=== PATIENT | female | born 1995 ===

== ENCOUNTER 2021-09-24 22:32 | Emergency (ER) | payer SELFPAY ==
--- NOTE | 2021-09-25 00:24 | ER ---
Nurse's Notes [facility] Name: Yumi Jones Age: 26 yrs Sex: Female : 1995 Arrival Date: 09/24/2021 Time: 22:39 Bed Waiting Private MD: Diagnosis: Presentation: 09/24 23:14 Chief complaint: Patient states: CHEST PAIN STARED LAST NIGHT. STOMACH ACH STARTED kd3 HURTING AROUND NOON TODAY. ABOUT A YEAR AGO, I HAD SIMILAR PAIN WHEN I WAS BUT IT WENT AWAY ON ITS OWN. Coronavirus screen: Vaccine status: Patient reports receiving the 2nd dose of the covid vaccine. Ebola Screen: No symptoms or risks identified at this time. Initial Sepsis Screen: Does the patient meet any 2 criteria? No. Patient's initial sepsis screen is negative. Does the patient have a suspected source of infection? No. Patient's initial sepsis screen is negative. Risk Assessment: Do you want to hurt yourself or someone else? Patient reports no desire to harm self or others. Onset of symptoms was September 23, 2021. 23:14 Method Of Arrival: Ambulatory kd3 23:14 Acuity: YESENIA 4 kd3 Triage Assessment: 23:18 General: Appears in no apparent distress. Behavior is calm, cooperative, appropriate kd3 for age. Pain: Complains of pain in chest and abdomen. Cardiovascular: Patient's skin is warm and dry. Respiratory: No deficits noted. Airway is patent Respiratory effort is even, unlabored. RAYON TESTER: 23:18 LMP 08/23/2021 kd3 Historical: - Allergies: 23:17 No Known Allergies; kd3 - Home Meds: 23:17 None [Active]; kd3 - PMHx: 23:17 None; kd3 - PSHx: 23:17 None; kd3 23:18 COSMETIC TUMMUY TUCK; kd3 - Immunization history:: Adult Immunizations not up to date. - Social history:: Smoking status: Patient denies any tobacco usage or history of. Screenin:20 Abuse screen: Denies threats or abuse. Denies injuries from another. Nutritional kd3 screening: No deficits noted. Tuberculosis screening: No symptoms or risk factors identified. Fall Risk None identified. Assessment: 09/25 00:00 Reassessment: Notified of patient leaving at 2334 by Registration staff, reason unknown.lp1 Vital Signs: 09/24 23:14 BP 136 / 94; Pulse 85; Resp 16; Temp 97.7; Pulse Ox 98% on R/A; Weight 99.79 kg; Height kd3 5 ft. 5 in. (165.10 cm); Pain 7/10; 23:14 Body Mass Index 36.61 (99.79 kg, 165.10 cm) kd3 ED Course: 22:39 Patient arrived in ED. 23:17 Triage completed. kd3 23:18 Arm band placed on right wrist. kd3 23:34 Patient's name was called from ER lobby. Unable to locate patient. Will disposition as lp1 left without being seen by a provider. Administered Medications: No medications were administered Outcome: 09/25 00:24 Patient left the ED. lp1 Signatures: Pastora Jain, RN RN lp1 Flora Rachel Roxy Daniels RN RN kd3 Corrections: (The following items were deleted from the chart) 00:21 09/24 23:34 Patient's name was called from ER lobby. Unable to locate patient. Will lp1 disposition as left without being seen by a provider. lp1 09/25 00:21 00:00 Reassessment: Notified of patient leaving by Registration staff, reason unknown lp1 lp1
[2021-09-25 00:32] VITALS: BP 136/94; TEMP 97.7; O2SAT 98
== END 2021-09-25 00:24 | disposition left against medical advice (07) ==
LOC: ER 22:32
DX: Z53.21 Procedure and treatment not carried out due to patient leaving prior to being seen by health care provider (principal)
CPT/HCPCS: 99281

== ENCOUNTER 2022-04-28 22:49 | Emergency (ER) | payer SELFPAY ==
[2022-04-28] MEDS ORDERED: ONDANSETRON 4 MG/2 ML VIAL ONE (23:59)
[2022-04-29] MEDS ORDERED: NA CHLORIDE 0.9% 1,000 ML ONE
[2022-04-29] MEDS ORDERED: FAMOTIDINE 20 MG/2 ML VIAL IV ONE
[2022-04-29 00:01] LABS: Absolute Lymphocytes (CBC) 3.1 K/uL (0.7-4.9); Hematocrit 43.3 % (36.0-45.0); Lymphocytes % 26.3 % (15.3-44.8); MCV 87.1 fL (80-100); MPV 7.1 fL (7.6-11.3); RBC Red Blood Cell Count 4.97 M/uL (3.86-4.86)
[2022-04-29 00:12] LABS: Bilirubin Total 0.4 mg/dL (0.2-1.0); Potassium 3.4 mmol/L (3.5-5.1); Protein, Total 8.2 g/dL (6.4-8.2)
[2022-04-29] MEDS ORDERED: MORPHINE 4 MG/ML SYR ONE (01:08)
[2022-04-29 01:13] LABS: Urine Blood Negative (Negative); Urine Glucose Negative (Negative); Urine Protein Negative (Negative); Urine pH 6.5 (5.0-7.0)
--- NOTE | 2022-04-29 02:53 | EDPHYS ---
Physician Documentation [facility] Name: Yumi Jones Age: 26 yrs Sex: Female : 1995 Arrival Date: 04/28/2022 Time: 22:52 Bed 9 Private MD: ED Physician Lico Farris HPI: 04/28 23:26 This 26 yrs old Female presents to ER via Ambulatory with complaints of Epigastric Pain.kdr 23:28 Patient complains of abdominal pain, upper, that radiates to her anterior chest in the kdr subclavicular area as well as her back. She has had similar episodes previously but not as severe or as all-encompassing as today. Patient does not appear to be acutely ill or toxic. Her vital signs are overall stable though her blood pressures little bit elevated. Otherwise she is slightly diaphoretic on exam but no other focal findings.. Onset: The symptoms/episode began/occurred gradually, just prior to arrival, today. Severity of symptoms: At their worst the symptoms were mild moderate just prior to arrival, in the emergency department the symptoms are unchanged. The patient has experienced similar episodes in the past, a few times. The patient has not recently seen a physician. Historical: - Allergies: 22:59 No Known Allergies; hb - Home Meds: 22:59 None [Active]; hb - PMHx: 22:59 None; hb - PSHx: 22:59 COSMETIC TUMMUY TUCK; liposuction; hb - Immunization history:: Adult Immunizations up to date. - Social history:: Smoking status: Patient denies any tobacco usage or history of. ROS: 23:28 Constitutional: Negative for fever, chills, and weight loss, Eyes: Negative for injury, kdr pain, redness, and discharge, ENT: Negative for injury, pain, and discharge, Neck: Negative for injury, pain, and swelling, Cardiovascular: Negative for chest pain, palpitations, and edema, Respiratory: Negative for shortness of breath, cough, wheezing, and pleuritic chest pain, Back: Negative for injury and pain, : Negative for injury, bleeding, discharge, and swelling, MS/Extremity: Negative for injury and deformity, Neuro: Negative for headache, weakness, numbness, tingling, and seizure activity. 23:28 Abdomen/GI: Positive for abdominal pain, nausea, Negative for abdominal distension, anorexia, dysphagia, hematemesis, black/tarry stool, rectal pain, rectal bleeding. Exam: 23:28 Constitutional: This is a well developed, well nourished patient who is awake, alert, kdr and in no acute distress. Head/Face: Normocephalic, atraumatic. Eyes: Pupils equal round and reactive to light, extra-ocular motions intact. Lids and lashes normal. Conjunctiva and sclera are non-icteric and not injected. Cornea within normal limits. Periorbital areas with no swelling, redness, or edema. Neck: Trachea midline, no thyromegaly or masses palpated, and no cervical lymphadenopathy. Supple, full range of motion without nuchal rigidity, or vertebral point tenderness. No Meningismus. Chest/axilla: Normal chest wall appearance and motion. Nontender with no deformity. No lesions are appreciated. Cardiovascular: Regular rate and rhythm with a normal S1 and S2. No gallops, murmurs, or rubs. Normal PMI, no JVD. No pulse deficits. Respiratory: Lungs have equal breath sounds bilaterally, clear to auscultation and percussion. No rales, rhonchi or wheezes noted. No increased work of breathing, no retractions or nasal flaring. Abdomen/GI: Soft, non-tender, with normal bowel sounds. No distension or tympany. No guarding or rebound. No evidence of tenderness throughout. Back: No spinal tenderness. No costovertebral tenderness. Full range of motion. Skin: Warm, dry with normal turgor. Normal color with no rashes, no lesions, and no evidence of cellulitis. MS/ Extremity: Pulses equal, no cyanosis. Neurovascular intact. Full, normal range of motion. Neuro: Awake and alert, GCS 15, oriented to person, place, time, and situation. Cranial nerves II-XII grossly intact. Motor strength 5/5 in all extremities. Sensory grossly intact. Cerebellar exam normal. Normal gait. Psych: Awake, alert, with orientation to person, place and time. Behavior, mood, and affect are within normal limits. 23:28 Skin: Turgor: is excellent, Patient was mildly diaphoretic at the time of initial exam. 04/29 02:59 ECG was reviewed by the Attending Physician. kdr Vital Signs: 04/28 22:58 BP 142 / 106; Pulse 88; Resp 16; Temp 98.3(O); Pulse Ox 100% on R/A; Weight 90.72 kg; hb Height 5 ft. 5 in. (165.10 cm); Pain 8/10; 04/29 01:04 BP 128 / 89; Pulse 85; Resp 18; Pulse Ox 100% on R/A; Pain 7/10; tw5 02:19 Pulse 75; Resp 18; Pulse Ox 100% on R/A; tw5 04/28 22:58 Body Mass Index 33.28 (90.72 kg, 165.10 cm) hb MDM: 02:52 Patient medically screened. kdr 03:00 Data reviewed: vital signs, nurses notes, old medical records, lab test result(s), kdr radiologic studies. Counseling: I had a detailed discussion with the patient and/or guardian regarding: the historical points, exam findings, and any diagnostic results supporting the discharge/admit diagnosis, lab results, radiology results. 04/28 23:26 Order name: CBC with Diff; Complete Time: 00:43 kdr 04/28 23:26 Order name: CMP; Complete Time: 00:43 kdr 04/28 23:26 Order name: Lipase; Complete Time: 00:43 kdr 04/29 01:13 Order name: Urine Dipstick-Ancillary; Complete Time: 02:46 EDMS 04/29 01:19 Order name: Urine --Ancillary (enter results); Complete Time: 02:46 ds4 04/29 02:04 Order name: Troponin High Sensitivity; Complete Time: 02:46 kdr 04/28 23:26 Order name: Abdomen Limited US kdr 04/28 23:26 Order name: CT Abd/Pelvis - IV Contrast Only kdr 04/28 23:33 Order name: EKG; Complete Time: 23:34 tw5 04/28 23:26 Order name: IV Saline Lock; Complete Time: 23:48 kdr 04/28 23:26 Order name: Labs collected and sent; Complete Time: 23:48 kdr EC:59 Rate is 80 beats/min. Rhythm is regular, Sinus Rhythm with No ectopy. QRS [place] is kdr Normal. HI interval is normal. QRS interval is normal. QT interval is normal. Clinical impression: Normal ECG. Administered Medications: 04/28 23:58 Drug: NS 0.9% 1000 ml Route: IV; Rate: 1 bolus; Site: left antecubital; 04/29 01:05 Follow up: Response: No adverse reaction; IV Status: Completed infusion; IV Intake: tw5 1000ml 01:05 Follow up: IV Status: Completed infusion 04/28 23:59 Drug: Pepcid (famotidine) 20 mg Route: IVP; Site: left antecubital; 04/29 01:05 Follow up: Response: No adverse reaction 04/28 23:59 Drug: Zofran (Ondansetron) 4 mg Route: IVP; Site: left antecubital; 04/29 01:05 Follow up: Response: No adverse reaction 01:04 Drug: morphine 4 mg Route: IVP; Infused Over: 4 mins; Site: left antecubital; 02:00 Follow up: Response: No adverse reaction; Pain is decreased; RASS: Alert and Calm (0) 03:05 Drug: Ketorolac 15 mg Route: IVP; Site: left antecubital; 03:05 Follow up: Response: No adverse reaction; Medication administered at discharge. Disposition Summary: 04/29/22 02:52 Discharge Ordered Location: Home kdr Condition: Stable kdr Diagnosis - Abdominal pain, Generalized kdr Followup: kdr - With: Private Physician - When: 2 - 3 days - Reason: If symptoms return, Further diagnostic work-up, Recheck today's complaints, Continuance of care, Re-evaluation by your physician Discharge Instructions: - Discharge Summary Sheet kdr - Abdominal Pain, Adult, [id number] kdr - Gallbladder Eating Plan kdr Forms: - Medication Reconciliation Form kdr - Thank You Letter kdr - Antibiotic Education kdr - Prescription Opioid Use kdr Prescriptions: - Zofran 4 mg Oral Tablet - take 1 tablet by ORAL route every 4-6 hours As needed; 10 tablet; Refills: 0, kdr Product Selection Permitted - Tramadol 50 mg Oral Tablet - take 1 tablet by ORAL route every 8 hours as needed; 12 tablet; Refills: 0, kdr Product Selection Permitted - Bactrim DS 800-160 mg Oral Tablet - take 1 tablet by ORAL route every 12 hours for 5 days; 10 tablet; Refills: 0, kdr Product Selection Permitted Signatures: Dispatcher [facility] Rittger, LicoMD MD cachorro Heather, RN RN Nevin Killian tw5
--- NOTE | 2022-04-29 02:53 | ER ---
Nurse's Notes [facility] Name: Yumi Jones Age: 26 yrs Sex: Female : 1995 Arrival Date: 04/28/2022 Time: 22:52 Bed 9 Private MD: Diagnosis: Abdominal pain, Generalized Presentation: 04/28 22:58 Chief complaint: Epigastric pain that radiates to chest and upper back. hb 22:58 Coronavirus screen: At this time, the client does not indicate any symptoms associated hb with coronavirus-19. Ebola Screen: No symptoms or risks identified at this time. Initial Sepsis Screen: Does the patient meet any 2 criteria? No. Patient's initial sepsis screen is negative. Does the patient have a suspected source of infection? No. Patient's initial sepsis screen is negative. Risk Assessment: Do you want to hurt yourself or someone else? Patient reports no desire to harm self or others. Onset of symptoms was April 28, 2022. 22:58 Method Of Arrival: Ambulatory hb 22:58 Acuity: YESENIA 3 hb Historical: - Allergies: 22:59 No Known Allergies; hb - Home Meds: 22:59 None [Active]; hb - PMHx: 22:59 None; hb - PSHx: 22:59 COSMETIC TUMMUY TUCK; liposuction; hb - Immunization history:: Adult Immunizations up to date. - Social history:: Smoking status: Patient denies any tobacco usage or history of. Screenin:35 Abuse screen: Denies threats or abuse. Denies injuries from another. Nutritional kb3 screening: No deficits noted. Tuberculosis screening: No symptoms or risk factors identified. Fall Risk None identified. Assessment: 23:35 Also complains of nausea. Reassessment: No changes from previously documented kb3 assessment. General: Appears distressed, uncomfortable, Behavior is calm, cooperative. Pain: Complains of pain in epigastric area Pain radiates to mid-sternal area Pain currently is 10 out of 10 on a pain scale. Quality of pain is described as burning, pressure, Pain began 3 hours ago. Is continuous. Cardiovascular: Reports chest pain, nausea, Rhythm is regular. GI: Abd is soft Abdomen is tender to palpation in epigastric area Reports epigastric pain, gaseousness, nausea. 04/29 01:04 General: Behavior is calm, cooperative, appropriate for age. Pain: Pain currently is 7 tw5 out of 10 on a pain scale. 02:19 Reassessment: Patient is alert, oriented x 3, equal unlabored respirations, skin tw5 warm/dry/pink. Patient states feeling better. Patient states symptoms have improved. Pain: Pain currently is 2 out of 10 on a pain scale. 03:05 Reassessment: Patient appears in no apparent distress at this time. Patient states tw5 feeling better. Patient states symptoms have improved. Vital Signs: 04/28 22:58 BP 142 / 106; Pulse 88; Resp 16; Temp 98.3(O); Pulse Ox 100% on R/A; Weight 90.72 kg; hb Height 5 ft. 5 in. (165.10 cm); Pain 8/10; 04/29 01:04 BP 128 / 89; Pulse 85; Resp 18; Pulse Ox 100% on R/A; Pain 7/10; tw5 02:19 Pulse 75; Resp 18; Pulse Ox 100% on R/A; tw5 04/28 22:58 Body Mass Index 33.28 (90.72 kg, 165.10 cm) hb ED Course: 04/28 22:52 Patient arrived in ED. bp1 22:54 Lico Farris MD is Attending Physician. kdr 22:59 Triage completed. hb 22:59 Arm band placed on. hb 23:03 Christy Leavitt, RN is Primary Nurse. kb3 23:35 Patient has correct armband on for positive identification. Client placed on continuous kb3 cardiac and pulse oximetry monitoring. NIBP monitoring applied. 23:35 EKG done, by ED staff, reviewed by Lico Farris MD. tw5 23:35 No provider procedures requiring assistance completed. Patient maintains SpO2 kb3 saturation greater than 95% on room air. 23:48 Initial lab(s) drawn, by me, sent to lab. Inserted saline lock: 20 gauge in left tw5 antecubital area, using aseptic technique. Blood collected. 23:48 CBC with Diff Sent. tw5 23:48 CMP Sent. tw5 23:48 Lipase Sent. tw5 23:59 CBC with Diff Sent. tw5 23:59 CMP Sent. tw5 23:59 Lipase Sent. tw5 04/29 00:00 Abdomen Limited US In Process Unspecified. EDMS 01:22 CT Abd/Pelvis - IV Contrast Only In Process Unspecified. EDMS 02:12 Troponin High Sensitivity Sent. tw5 03:05 IV discontinued, intact, bleeding controlled, No redness/swelling at site. Pressure tw5 dressing applied. Administered Medications: 04/28 23:58 Drug: NS 0.9% 1000 ml Route: IV; Rate: 1 bolus; Site: left antecubital; tw5 04/29 01:05 Follow up: Response: No adverse reaction; IV Status: Completed infusion; IV Intake: tw5 1000ml 01:05 Follow up: IV Status: Completed infusion tw5 04/28 23:59 Drug: Pepcid (famotidine) 20 mg Route: IVP; Site: left antecubital; tw5 04/29 01:05 Follow up: Response: No adverse reaction tw5 04/28 23:59 Drug: Zofran (Ondansetron) 4 mg Route: IVP; Site: left antecubital; tw5 04/29 01:05 Follow up: Response: No adverse reaction tw5 01:04 Drug: morphine 4 mg Route: IVP; Infused Over: 4 mins; Site: left antecubital; tw5 02:00 Follow up: Response: No adverse reaction; Pain is decreased; RASS: Alert and Calm (0) tw5 03:05 Drug: Ketorolac 15 mg Route: IVP; Site: left antecubital; tw5 03:05 Follow up: Response: No adverse reaction; Medication administered at discharge. tw5 Medication: 04/28 23:35 VIS not applicable for this client. kb3 Intake: 04/29 01:05 IV: 1000ml; Total: 1000ml. tw5 Outcome: 02:52 Discharge ordered by . kdr 03:05 Discharged to home ambulatory. tw5 03:05 Condition: good 03:05 Discharge instructions given to patient, Instructed on discharge instructions, follow up and referral plans. no drinking with medication, no driving heavy equipment, medication usage, Demonstrated understanding of instructions, follow-up care, medications, Prescriptions given X 3. 03:06 Patient left the ED. tw5 Signatures: Dispatcher [employer] EDMS Lico Farris MD MD kdr Rachael Flores RN RN hb [place], Brittany bp1 Wood, Tiffany tw5 Tree, Christy, RN RN kb3
[2022-04-29] MEDS ORDERED: KETOROLAC 30 MG/ML INJ ONE (03:08)
[2022-04-29 08:10] VITALS: TEMP 98.3; O2SAT 100
[2022-04-29 08:13] VITALS: BP 128/89
--- NOTE | 2022-04-30 08:10 | EKG ---
Test Date: 2022-04-28 Test Time: 23:34:11 Diver'S Tender: MEASUREMENT RESULTS: Intervals: Rate: 80 OK: 184 QRSD: 78 QT: 380 QTc: 438 Gilbert: P: 44 OK: 184 QRS: 34 T: 43 INTERPRETIVE STATEMENTS: Normal sinus rhythm Normal ECG No previous ECG available for comparison Electronically Signed On 04-30-22 08:06:37 CDT by Ck Galo
--- NOTE | 2022-04-30 12:09 | RAD REPORT ---
EXAM DESCRIPTION: US - Abdomen Exam Limited - 04/30/2022 5:26 am CLINICAL HISTORY: ABD PAIN. COMPARISON: None. TECHNIQUE: Ultrasound of the gallbladder with Doppler flow imaging was obtained. FINDINGS: The main portal vein is patent with normal hepatopedal flow. Gallbladder: There are few small calcified gallstones layering dependently in the gallbladder, measur ing up to 1.8 cm. No gallbladder wall thickening. Bile ducts: No dilatation of the intrahepatic bile ducts. The common bile duct measures 0.3 cm in chaz meter at the richard hepatis. IMPRESSION: Cholelithiasis. No gallbladder wall thickening or biliary ductal dilatation. Electronically signed by: Kalee Santillan MD 04/29/2022 12:16 AM CDT Due to temporary technical issues with the PACS/Fluency reporting system, reports are being signed by the in house radiologists without review as a courtesy to insure prompt reporting. The interpreting radiologist is fully responsible for the content of the report.
--- NOTE | 2022-04-30 12:37 | RAD REPORT ---
EXAM DESCRIPTION: CT - Abdomen Pelvis W Contrast - 04/29/2022 3:31 am CLINICAL HISTORY: 26 years Female Abdominal pain, acute, nonlocalized TECHNIQUE: Axial CT imaging of the abdomen and pelvis was performed following the administration of intravenous contrast.. Oral contrast was not administered. Sagittal and coronal reconstructed image s were then performed. The CT study is performed according to ALARA (as low as reasonably achievabl e) or ALARA/IMAGE GENTLY, with automatic adjustment of mA and/or kV according to patient size. Performed on: 04/29/2022 at 1:20 AM. COMPARISON: Abdominal ultrasound performed on 04/28/2022 11:50 PM FINDINGS: Lung bases: The lung bases are clear. Liver: The liver measures approximately 20 cm in craniocaudal dimension. No focal hepatic abnormaliti es are identified. Liver attenuation is within normal limits. The hepatic and portal veins are patent . Spleen: The spleen is normal is size, configuration and attenuation. Gallbladder and bile duct: The gallbladder is well distended and contains gallstones. There is no b iliary ductal dilatation. Pancreas: The pancreas is grossly normal in size and configuration. Adrenal Glands: The adrenal glands are normal in size and configuration. Kidneys: The kidneys are normal in size and configuration. There is no evidence of hydronephrosis. Th ere is no evidence of nephrolithiasis. No definite solid or cystic renal mass lesions are identified. Stomach: The stomach is grossly normal. There is no definite hiatal hernia. Bowel: The bowel gas pattern is non specific and non obstructive. Appendix: The appendix is normal. Free air: There is no evidence of free air. Free fluid: There is no evidence of free fluid. Vasculature: The aorta is normal in caliber and contour. The inferior vena cava is grossly unremarkab le. Lymphadenopathy: No pathologic lymphadenopathy is identified. Bladder: The bladder is well distended and smooth in contour. Reproductive: The uterus is grossly within normal limits. Bones: No acute osseous abnormalities are identified. Soft tissues: No acute soft tissue abnormalities are identified. IMPRESSION: 1. No evidence of acute intra-abdominal or intrapelvic pathology. 2. Cholelithiasis without evidence of biliary ductal dilatation. 3. Hepatomegaly. Electronically signed by: Amina Tucker DO 04/29/2022 2:11 AM CDT Due to temporary technical issues with the PACS/Fluency reporting system, reports are being signed by the in house radiologists without review as a courtesy to insure prompt reporting. The interpreting radiologist is fully responsible for the content of the report.
== END 2022-04-29 03:06 | disposition home or self-care (01) ==
LOC: ER 22:49
DX: R10.84 Generalized abdominal pain (principal)
CPT/HCPCS: 36415; 74177; 76705; 80053; 81003; 81025; 83690; 84484; 85025; 93005; 96361; 96374; 96375; 99284; J2405; Q9967

== ENCOUNTER 2022-05-13 10:32 | Inpatient (IN) | payer SELFPAY ==
[2022-05-13 10:54] LABS: Urine Blood Trace-intact (Negative); Urine Glucose Negative (Negative); Urine Protein Trace (Negative); Urine Specific Gravity >=1.030 (1.005-1.030)
[2022-05-13 11:11] LABS: Absolute Lymphocytes (CBC) 1.8 K/uL (0.7-4.9); Lymphocytes % 17.2 % (15.3-44.8); MCV 88.3 fL (80-100); MPV 7.2 fL (7.6-11.3); RBC Red Blood Cell Count 4.99 M/uL (3.86-4.86)
[2022-05-13] MEDS ORDERED: ONDANSETRON 4 MG/2 ML VIAL ONE ×2 (11:15→20:07)
[2022-05-13] MEDS ORDERED: MORPHINE 4 MG/ML SYR ONE (11:15)
[2022-05-13] MEDS ORDERED: FAMOTIDINE 20 MG/2 ML VIAL IV ONE (11:15)
[2022-05-13 11:26] LABS: Bilirubin Total 0.6 mg/dL (0.2-1.0); Potassium 3.5 mmol/L (3.5-5.1); Protein, Total 8.1 g/dL (6.4-8.2)
[2022-05-13] MEDS ORDERED: MEPERIDINE HCL 25 MG/ML SYR ONE (12:43)
--- NOTE | 2022-05-13 13:05 | RAD REPORT ---
EXAM DESCRIPTION: US - Abdomen Exam Limited - 05/13/2022 12:27 pm CLINICAL HISTORY: Abdominal pain. COMPARISON: April 2022 FINDINGS: The gallbladder wall is not thickened. Multiple gallstones. Some are present within the g allbladder neck Gallbladder distention The biliary tree is normal caliber. IMPRESSION: Cholelithiasis without evidence of cholecystitis Gallbladder distention
--- NOTE | 2022-05-13 13:48 | EDPHYS ---
Physician Documentation [facility] Name: Yumi Jones Age: 26 yrs Sex: Female : 1995 Arrival Date: 05/13/2022 Time: 10:34 Bed 17 Private MD: ED Physician Lico Farris HPI: 05/13 15:08 This 26 yrs old Female presents to ER via Ambulatory with complaints of Abdominal Pain. kdr 15:08 The patient presents with abdominal pain in the epigastric area, in the right upper kdr quadrant. Onset: The symptoms/episode began/occurred just prior to arrival, this morning. The symptoms do not radiate. Associated signs and symptoms: none. The symptoms are described as achy, crampy, sharp, vague, waxing/waning. Modifying factors: The symptoms are alleviated by nothing, the symptoms are aggravated by movement, touching the area, vomiting. Severity of pain: At its worst the pain was a 7 / 10 in the emergency department the pain is unchanged. The patient has experienced similar episodes in the past, several times, but today's symptoms are worse. The patient has not recently seen a physician. 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 ROS: 15:08 Constitutional: Negative for fever, chills, and weight loss, Eyes: Negative for injury, kdr pain, redness, and discharge, Neck: Negative for injury, pain, and swelling, Cardiovascular: Negative for chest pain, palpitations, and edema, Respiratory: Negative for shortness of breath, cough, wheezing, and pleuritic chest pain, Back: Negative for injury and pain, : Negative for injury, bleeding, discharge, and swelling, MS/Extremity: Negative for injury and deformity, Skin: Negative for injury, rash, and discoloration, Neuro: Negative for headache, weakness, numbness, tingling, and seizure activity. Psych: Negative for depression, anxiety, suicide ideation, homicidal ideation, and hallucinations, Allergy/Immunology: Negative for hives, rash, and allergies, Endocrine: Negative for neck swelling, polydipsia, polyuria, polyphagia, and marked weight changes, Hematologic/Lymphatic: Negative for swollen nodes, abnormal bleeding, and unusual bruising. 15:08 Abdomen/GI: Positive for abdominal pain, nausea, Negative for diarrhea, constipation, abdominal cramps, abdominal distension, black/tarry stool, rectal pain, rectal bleeding, bowel incontinence. Exam: 15:08 Constitutional: This is a well developed, well nourished patient who is awake, alert, kdr and in no acute distress. Head/Face: Normocephalic, atraumatic. Eyes: Pupils equal round and reactive to light, extra-ocular motions intact. Lids and lashes normal. Conjunctiva and sclera are non-icteric and not injected. Cornea within normal limits. Periorbital areas with no swelling, redness, or edema. Neck: Trachea midline, no thyromegaly or masses palpated, and no cervical lymphadenopathy. Supple, full range of motion without nuchal rigidity, or vertebral point tenderness. No Meningismus. Chest/axilla: Normal chest wall appearance and motion. Nontender with no deformity. No lesions are appreciated. Cardiovascular: Regular rate and rhythm with a normal S1 and S2. No gallops, murmurs, or rubs. Normal PMI, no JVD. No pulse deficits. Respiratory: Lungs have equal breath sounds bilaterally, clear to auscultation and percussion. No rales, rhonchi or wheezes noted. No increased work of breathing, no retractions or nasal flaring. Back: No spinal tenderness. No costovertebral tenderness. Full range of motion. Skin: Warm, dry with normal turgor. Normal color with no rashes, no lesions, and no evidence of cellulitis. MS/ Extremity: Pulses equal, no cyanosis. Neurovascular intact. Full, normal range of motion. Neuro: Awake and alert, GCS 15, oriented to person, place, time, and situation. Cranial nerves II-XII grossly intact. Motor strength 5/5 in all extremities. Sensory grossly intact. Cerebellar exam normal. Normal gait. Psych: Awake, alert, with orientation to person, place and time. Behavior, mood, and affect are within normal limits. 15:08 Abdomen/GI: Inspection: obese Bowel sounds: diminished, in all quadrants, Palpation: Indicators: McBurney's point is not tender, Luevano's sign is negative, Rovsing's sign is negative. Vital Signs: 10:42 BP 119 / 81; Pulse 87; Resp 16; Temp 97.0; Pulse Ox 100% on R/A; Weight 90.72 kg; iw Height 5 ft. 5 in. (165.10 cm); Pain 9/10; 10:55 BP 110 / 82; Pulse 92; Resp 16; Pulse Ox 99% ; Pain 10/10; mb8 11:37 BP 127 / 89; Pulse 80; Resp 16; Pulse Ox 99% ; Pain 7/10; mb8 12:38 BP 119 / 74; Pulse 84; Resp 14; Pulse Ox 97% ; Pain 7/10; mb8 12:56 BP 129 / 94; Pulse 89; Resp 16; Pain 5/10; mb8 12:57 BP 129 / 94; Pulse 70; Resp 16; Pulse Ox 99% ; Pain 5/10; mb8 14:13 BP 127 / 82; Pulse 69; Resp 20; Temp 98.1; Pulse Ox 100% ; Pain 7/10; mb8 14:56 BP 124 / 91; Pulse 71; Resp 15; Pulse Ox 99% ; Pain 4/10; mb8 16:00 BP 120 / 88; Pulse 85; Resp 14; Pulse Ox 80% ; Pain 7/10; mb8 16:25 BP 124 / 89; Pulse 80; Resp 18; Pulse Ox 98% ; Pain 7/10; mb8 17:27 BP 118 / 81; Pulse 89; Resp 20; Pulse Ox 97% ; Pain 9/10; mb8 10:42 Body Mass Index 33.28 (90.72 kg, 165.10 cm) iw MDM: 10:51 Patient medically screened. snw 15:08 Data reviewed: vital signs, nurses notes, lab test result(s), radiologic studies. kdr Counseling: I had a detailed discussion with the patient and/or guardian regarding: the historical points, exam findings, and any diagnostic results supporting the discharge/admit diagnosis, lab results, radiology results, the need for further work-up and treatment in the hospital. 15:12 Physician consultation: Tejas Felipe MD and will see patient in ED, immediately. kdr 05/13 10:54 Order name: Urine Dipstick-Ancillary; Complete Time: 11:59 EDMS 05/13 10:59 Order name: CBC with Diff; Complete Time: 11:59 kdr 05/13 10:59 Order name: CMP; Complete Time: 11:59 kdr 05/13 10:59 Order name: Lipase; Complete Time: 11:59 kdr 05/13 15:09 Order name: SARS RAPID eb 05/13 16:44 Order name: Urine --Ancillary (enter results) eb 05/13 16:46 Order name: Basic Metabolic Panel EDMS 05/13 16:46 Order name: Basic Metabolic Panel EDMS 05/13 16:46 Order name: CBC with Automated Diff EDMS 05/13 16:46 Order name: CBC with Automated Diff EDMS 05/13 16:46 Order name: Lipase EDMS 05/13 16:46 Order name: Lipase EDMS 05/13 16:46 Order name: Liver (Hepatic) Function EDMS 05/13 10:47 Order name: Urine Dipstick-Ancillary (obtain specimen); Complete Time: 10:53 mb8 05/13 10:47 Order name: Urine Test (obtain specimen); Complete Time: 10:53 mb8 05/13 10:59 Order name: Abdomen Limited US; Complete Time: 13:19 kdr 05/13 10:59 Order name: IV Saline Lock; Complete Time: 11:02 kdr 05/13 10:59 Order name: Labs collected and sent; Complete Time: 11:02 kdr 05/13 16:46 Order name: NPO EDMS 05/13 16:46 Order name: Liver (Hepatic) Function EDMS Administered Medications: 11:12 Drug: morphine 4 mg Route: IVP; Infused Over: 4 mins; Site: right antecubital; mb8 11:37 Follow up: Response: No adverse reaction; Pain is decreased mb8 11:12 Drug: Pepcid (famotidine) 20 mg Route: IVP; Site: right antecubital; mb8 11:37 Follow up: Response: No adverse reaction mb8 11:12 Drug: Zofran (Ondansetron) 4 mg Route: IVP; Site: right antecubital; mb8 11:36 Follow up: Response: No adverse reaction; Nausea is decreased mb8 12:38 Drug: Demerol (meperidine) 25 mg Route: IVP; Site: right antecubital; mb8 12:56 Follow up: BP 129 / 94; Pulse 89 bpm; Resp 16 bpm; Pain 5/10 Adult; Response: No mb8 adverse reaction; Pain is decreased 14:23 Drug: Dilaudid (HYDROmorphone) 1 mg Route: IVP; Infused Over: 30 mins; Site: right mb8 antecubital; 14:57 Follow up: Response: No adverse reaction; Pain is decreased mb8 15:59 Drug: Zosyn (piperacillin-tazobactam) 3.375 grams Route: IVPB; Infused Over: 60 mins; mb8 Site: right antecubital; 17:00 Follow up: Response: No adverse reaction; IV Status: Completed infusion mb8 Disposition Summary: 05/13/22 13:48 Hospitalization Ordered Hospitalization Status: Observation kdr Provider: Tejas Felipe Location: Telemetry/MedSurg (observation) kdr Condition: Fair kdr Problem: an acute exacerbation kdr Symptoms: have improved kdr Bed/Room Type: Standard kdr Room Assignment: kdr Diagnosis - Abdominal tenderness kdr - Gall stones, RUQ pain kdr Forms: - Medication Reconciliation Form kdr - SBAR form kdr Signatures: Dispatcher [employer] EDMS Lico Farris MD MD kdr Shireen Rodgers FNP-C FNP-Marjorie Berry RN RN iw Greg Lala RN RN mb8
--- NOTE | 2022-05-13 13:48 | ER ---
Nurse's Notes [facility] Name: Yumi Jones Age: 26 yrs Sex: Female : 1995 Arrival Date: 05/13/2022 Time: 10:34 Bed 17 Private MD: Diagnosis: Abdominal tenderness;Gall stones, RUQ pain Presentation: 05/13 10:42 Chief complaint: Patient states: upper abd pain X 12 hours, she was recently diagnosed iw with "bladder stones" and has been taking her tramadol but it's not helping, +nausea, +vomited once , denies urinary symptoms. Coronavirus screen: At this time, the client does not indicate any symptoms associated with coronavirus-19. Ebola Screen: Patient negative for fever greater than or equal to 101.5 degrees Fahrenheit, and additional compatible Ebola Virus Disease symptoms Patient denies exposure to infectious person. Patient denies travel to an Ebola-affected area in the 21 days before illness onset. No symptoms or risks identified at this time. Initial Sepsis Screen: Does the patient meet any 2 criteria? No. Patient's initial sepsis screen is negative. Does the patient have a suspected source of infection? No. Patient's initial sepsis screen is negative. Risk Assessment: Do you want to hurt yourself or someone else? Patient reports no desire to harm self or others. Onset of symptoms was May 13, 2022. 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 Screenin:55 Abuse screen: Denies threats or abuse. Denies injuries from another. Nutritional mb8 screening: No deficits noted. Tuberculosis screening: No symptoms or risk factors identified. Fall Risk None identified. Assessment: 10:54 General: Appears uncomfortable, Behavior is calm, cooperative, appropriate for age. mb8 Pain: Complains of pain in RUQ Pain radiates to back Pain currently is 10 out of 10 on a pain scale. Quality of pain is described as aching. Cardiovascular: No deficits noted. Respiratory: No deficits noted. GI: Bowel sounds present X 4 quads. Abdomen is tender to palpation in right upper quadrant Reports nausea, Patient currently denies bloody stool, rectal bleeding. : No deficits noted. 14:13 Reassessment: Patient and/or family updated on plan of care and expected duration. Pain mb8 level reassessed. Patient is alert, oriented x 3, equal unlabored respirations, skin warm/dry/pink. 14:57 Reassessment: Patient and/or family updated on plan of care and expected duration. Pain mb8 level reassessed. Patient is alert, oriented x 3, equal unlabored respirations, skin warm/dry/pink. Patient states feeling better. 15:59 Reassessment: Patient and/or family updated on plan of care and expected duration. Pain mb8 level reassessed. Patient is alert, oriented x 3, equal unlabored respirations, skin warm/dry/pink. 16:25 Reassessment: Patient and/or family updated on plan of care and expected duration. Pain mb8 level reassessed. Patient is alert, oriented x 3, equal unlabored respirations, skin warm/dry/pink. Patient waiting on surgeon to come down and see her.. 17:28 Reassessment: Patient and/or family updated on plan of care and expected duration. Pain mb8 level reassessed. Patient is alert, oriented x 3, equal unlabored respirations, skin warm/dry/pink. Surgery in room speaking with patient. They said they will come for her in about 45 minutes when they are ready for her for surgery. . Vital Signs: 10:42 BP 119 / 81; Pulse 87; Resp 16; Temp 97.0; Pulse Ox 100% on R/A; Weight 90.72 kg; iw Height 5 ft. 5 in. (165.10 cm); Pain 9/10; 10:55 BP 110 / 82; Pulse 92; Resp 16; Pulse Ox 99% ; Pain 10/10; mb8 11:37 BP 127 / 89; Pulse 80; Resp 16; Pulse Ox 99% ; Pain 7/10; mb8 12:38 BP 119 / 74; Pulse 84; Resp 14; Pulse Ox 97% ; Pain 7/10; mb8 12:56 BP 129 / 94; Pulse 89; Resp 16; Pain 5/10; mb8 12:57 BP 129 / 94; Pulse 70; Resp 16; Pulse Ox 99% ; Pain 5/10; mb8 14:13 BP 127 / 82; Pulse 69; Resp 20; Temp 98.1; Pulse Ox 100% ; Pain 7/10; mb8 14:56 BP 124 / 91; Pulse 71; Resp 15; Pulse Ox 99% ; Pain 4/10; mb8 16:00 BP 120 / 88; Pulse 85; Resp 14; Pulse Ox 80% ; Pain 7/10; mb8 16:25 BP 124 / 89; Pulse 80; Resp 18; Pulse Ox 98% ; Pain 7/10; mb8 17:27 BP 118 / 81; Pulse 89; Resp 20; Pulse Ox 97% ; Pain 9/10; mb8 10:42 Body Mass Index 33.28 (90.72 kg, 165.10 cm) iw ED Course: 10:34 Patient arrived in ED. am2 10:43 Triage completed. iw 10:44 Arm band placed on. iw 10:45 Lico Farris MD is Attending Physician. kdr 10:46 Greg Lala, XAVI is Primary Nurse. mb8 10:50 Shireen Rodgers FNP-C is PHCP. snw 10:55 Patient has correct armband on for positive identification. Bed in low position. Call mb8 light in reach. Side rails up X2. Client placed on continuous cardiac and pulse oximetry monitoring. NIBP monitoring applied. 10:56 No provider procedures requiring assistance completed. mb8 11:01 Inserted saline lock: 20 gauge in right antecubital area, using aseptic technique. mb8 Blood collected. 11:03 CBC with Diff Sent. mb8 11:03 CMP Sent. mb8 11:03 Lipase Sent. mb8 12:29 Abdomen Limited US In Process Unspecified. EDMS 13:46 Tejas Felipe MD is Hospitalizing Provider. kdr Administered Medications: 11:12 Drug: morphine 4 mg Route: IVP; Infused Over: 4 mins; Site: right antecubital; mb8 11:37 Follow up: Response: No adverse reaction; Pain is decreased mb8 11:12 Drug: Pepcid (famotidine) 20 mg Route: IVP; Site: right antecubital; mb8 11:37 Follow up: Response: No adverse reaction mb8 11:12 Drug: Zofran (Ondansetron) 4 mg Route: IVP; Site: right antecubital; mb8 11:36 Follow up: Response: No adverse reaction; Nausea is decreased mb8 12:38 Drug: Demerol (meperidine) 25 mg Route: IVP; Site: right antecubital; mb8 12:56 Follow up: BP 129 / 94; Pulse 89 bpm; Resp 16 bpm; Pain 5/10 Adult; Response: No mb8 adverse reaction; Pain is decreased 14:23 Drug: Dilaudid (HYDROmorphone) 1 mg Route: IVP; Infused Over: 30 mins; Site: right mb8 antecubital; 14:57 Follow up: Response: No adverse reaction; Pain is decreased mb8 15:59 Drug: Zosyn (piperacillin-tazobactam) 3.375 grams Route: IVPB; Infused Over: 60 mins; mb8 Site: right antecubital; 17:00 Follow up: Response: No adverse reaction; IV Status: Completed infusion mb8 Medication: 10:44 VIS not applicable for this client. iw Outcome: 13:48 Decision to Hospitalize by Provider. kdr 18:02 Patient left the ED. mb8 Signatures: Dispatcher [employer] EDMS Lico Farris MD MD kdr Waters, Shelly, LASER MACHINE OPERATOR-Jennifer LASER MACHINE OPERATOR-Marjorie Berry, RN RN iw Diann Wang Michael, RN RN mb8
[2022-05-13] MEDS ORDERED: HYDROMORPHONE HCL 1 MG/ML INJ ONE ×2 (14:25→17:24)
[2022-05-13] MEDS ORDERED: NA CHLORIDE 0.9% 100 ML ONE ×3 (14:26→17:24)
[2022-05-13 15:40] LABS: SARS-CoV-2 Antigen Rapid Res Negative (Negative)
[2022-05-13] MEDS ORDERED: PIPERACIL/TAZO 3.375 GM VIAL IV ONE (15:55)
[2022-05-13] MEDS ORDERED: ONDANSETRON 4 MG/2 ML VIAL IV PRN (16:44)
[2022-05-13] MEDS ORDERED: ACETAMINOPHEN 500 MG TAB PO PRN (16:44)
[2022-05-13] MEDS ORDERED: D5 0.45 NS 1,000 ML IV SCH (17:00)
[2022-05-13] MEDS: HYDROMORPHONE HCL 1 MG/ML INJ IV PRN (17:24)
[2022-05-13] MEDS ORDERED: D5 0.45 NS 0 ML IV ONE (17:25)
[2022-05-13] MEDS ORDERED: Ringers Lactate 1,000 ML IV ONE (18:20)
--- NOTE | 2022-05-13 19:48 | P.HP ---
Date of Service: 05/13/22 PC: This 26-year-old female presents to the emergency room with severe right upper quadrant abdominal pain for diagnosis and treatment. HPC: Patient has been having pain off and on for the last few months. Describes it is becoming more more severe as well as more frequent. Radiates straight through to her back. Has recently lost about 20 pounds. PSHx: Tumlucie tuck PMHx: 1 para 1 Social Hx: No known allergies Sys R: No cough, wheeze, shortness of breath. No chest pain or palpitations. Denies any urinary complaints O/E: Awake alert vital signs are stable HEENT: Nonicteric Chest: Air entry equal bilaterally Abd: Mild tenderness in the right upper quadrant [place]: Intact Data: Has documented gallstones Impression: Cholecystitis with cholelithiasis, biliary colic Plan: I will take her to the operating room for laparoscopic possible open cholecystectomy with a cholangiogram. The risks of this procedure have been discussed. The possibility of bleeding, infection, injury to bile ducts blood vessels and intestines has been described. The possible need for an open and or further surgeries and procedures was discussed. She understands and wants us to proceed.
[2022-05-13] MEDS ORDERED: LIDOCAINE 2% MPF 5 ML VIAL ONE (20:06)
[2022-05-13] MEDS ORDERED: propofoL 200 MG/20 ML VIAL IV ONE (20:06)
[2022-05-13] MEDS ORDERED: FENTANYL CITR 100 MCG/2 ML ONE ×2 (20:07→21:02)
[2022-05-13] MEDS ORDERED: dexAMETHasone 10 MG/ML VIAL ONE (20:07)
[2022-05-13] MEDS ORDERED: KETOROLAC 30 MG/ML INJ ONE (20:07)
[2022-05-13] MEDS ORDERED: ROCURONIUM 50 MG/5 ML VIAL IV ONE (20:07)
[2022-05-13] MEDS ORDERED: GLYCOPYRROLATE 0.2 MG/ML SYR ONE (20:46)
[2022-05-13] MEDS ORDERED: NEOSTIGMINE 1 MG/ML -10 ML VIAL ONE (20:46)
--- NOTE | 2022-05-13 21:37 | P.OP ---
Preoperative diagnosis: Cholecystitis with cholelithiasis, biliary colic Postoperative diagnosis: The same with hydrops of the gallbladder Primary procedure: Laparoscopic cholecystectomy Secondary procedure: Cholangiogram Other procedure(s): Disimpaction of stones from the cystic duct Anesthesia: General Estimated blood loss: Less than 20 cc Specimen: 1 gallbladder and contents Operative Technique: The patient brought the operating room and placed supine on the table. After the induction of adequate general endotracheal anesthesia, there the abdomen was prepped with a DuraPrep solution, she was draped in usual aseptic manner. Attention was turned towards the right side lateral side of the abdomen. This patient has had a previous tummy tuck. A skin incision was made through an old stretch fierro. We now used a Veress needle to enter the peritoneal cavity and created pneumoperitoneum after having established a hanging drop test and insufflating it under gentle varus pressure. Having established and remote peritoneum was now easy to place a 5 mm trocar in this area. Under direct vision we were able to place an 11 mm trocar at the umbilicus a 5 mm trocar in the upper midline and another 5 mm trocar lateral to lateral to our initial insertion site and somewhat more inferior. The patient is on the bed was now rolled to the left. The patient was placed in reverse Trendelenburg. We could visualize the right upper quadrant. We could see a markedly distended and acutely inflamed gallbladder in this area. It was necessary to aspirate his contents so that we can place a grasper upon it. It was interesting to note that the aspirate was actually clear, consistent with a hydrops of the gallbladder. At this point we were able to empty the gallbladder. A grasper was placed on the fundus another by Griffin's pouch. Applying lateral traction we were out little to expose the gallbladder with its junction with the cystic duct. The cystic duct was found to be quite large measuring almost 1 cm in size at this point. An opening was made into the cystic duct. We were now able to place a [place] on the cystic duct and gently milked milked back 3 stones that have been impacted in the duct. The cholangiocatheter was then placed into the cystic duct and we obtained a cholangiogram. The cholangiogram did not demonstrate any filling defects distally. Technically it was difficult to demonstrate the upper radicles but we did in our last view. No gross filling defects were noted. The catheter was now removed. Because of the size of the cystic duct, I felt more secure placed into chromic ties on the cystic duct. 1 traditional clip was also placed across it. The cystic artery was identified and divided. The electrocautery was now used to remove the gallbladder from the liver bed. We placed the specimen into the Endopouch. We will look for the stones that we had removed from the duct but were unable to find them. The most likely fell into the right paracolic gutter while we were irrigating. At this point the specimen was brought out through the umbilicus and sent for her still pathology. We could still palpate stones in the gallbladder that we removed. Attention was turned back towards the patient itself. The abdomen was once again inspected to ensure adequate hemostasis. Most of the irrigating fluid had been removed from the peritoneal cavity. Under direct vision our umbilical trocar site was approximated using the Endo Close and an absorbable suture. The pneumoperitoneum was now collapsed, the suture tied, and jet applied to the skin. At the end of the procedure she was stable and sent to the recovery room. Needle sponge instrument count were correct. No drains were placed. Transferred to: Recovery Room Condition: Good
[2022-05-13] MEDS: Ringers Lactate 1,000 ML IV SCH (22:06)
[2022-05-13] MEDS ORDERED: HYDROCODONE/APAP 7.5/325 MG TAB PO PRN (22:06)
[2022-05-13] MEDS: HYDROMORPHONE HCL 1 MG/ML INJ ONE ×2 (22:06→22:18)
--- NOTE | 2022-05-13 22:11 | RAD REPORT ---
EXAM DESCRIPTION: RAD - Fluoroscopy <1 Hour - 05/13/2022 9:57 pm CLINICAL HISTORY: Cholecystectomy FINDINGS: One fluoroscopic spot image obtained. Fluoroscopy time 0.3 minutes Cystic duct cannulated and contrast administered. Contrast flowed into the common bile duct and duode num Procedure performed by Dr. Felipe
[2022-05-13 22:28] VITALS: O2SAT 97
[2022-05-13 23:20] VITALS: BMI 34.2
[2022-05-14] MEDS: HYDROMORPHONE HCL 1 MG/ML INJ IV PRN ×4 (01:48→15:04)
[2022-05-14] MEDS: Ringers Lactate 1,000 ML IV SCH (08:35)
[2022-05-14 16:39] VITALS: BP 118/75; TEMP 98.9
== END 2022-05-14 16:45 | disposition home or self-care (01) | DRG 418 ==
LOC: ER 10:32 → ERHOLD 16:45 → 2ND 20:33 → OBSVTOIN 05-14 13:06
PROVIDERS: ADMIT Surgery; ATTEND Surgery
PROC: BF00YZZ Plain Radiography of Bile Ducts using Other Contrast (ICD-10-PCS; 2022-05-13)
PROC: 0FT44ZZ Resection of Gallbladder, Percutaneous Endoscopic Approach (ICD-10-PCS; principal; 2022-05-13 18:45)
DX: K80.10 Calculus of gallbladder with chronic cholecystitis without obstruction (principal); K82.1 Hydrops of gallbladder; Z20.822 Contact with and (suspected) exposure to COVID-19
CPT/HCPCS: 36415; 76000; 76705; 80053; 81003; 81025; 83690; 85025; 87811; 88304; 94010; 96365; 96375; 99284; G0378; J1100; J1170; J2001; J2175; J2405; J2543; J2704; J2710; J3010; J7120; J7799

== ENCOUNTER 2024-11-01 18:00 | Emergency (ER) | payer SELFPAY ==
--- OUTSIDE RECORDS SUMMARY | 2024-11-01 18:03 | XMS REPORT | Continuity of Care Document ---
Author Name Unknown Address [address] [facility] [address] [place] [address] [facility] Address [address] [facility] 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 Ordering Clinician Indication Dosage Frequency Signature (SIG) Comments Components Source Dose Unknown 2021-09 00:00: 00 No Dose Unknown 0 04-04 00:00: 00 No Dose Unknown 0 04-04 00:00: 00 No Dose Unknown 0 6-19 00:00: 00 No phentermine 37.5 mg tablet 0 6-14 00:00: 00 No 1mg Dose Unknown 0 6-14 00:00: 00 No Dose Unknown 0 6-14 00:00: 00 No Dose Unknown 0 6- 00:00: 00 No Dose Unknown 0 -31 00:00: 00 No Dose Unknown 0 -31 00:00: 00 No mupirocin 2 % topical ointment 04-03 00:00: 00 No 1% Bactrim DS 800 mg-160 mg tablet 04-03 00:00: 00 No 1mg Vital Signs Vital Name Observation Time Observation Value Comments S ource BP Systolic 2022-07-09 14:22:00 124 mm[Hg] BP Diastolic 2022-07-09 14:22:00 85 mm[Hg] Weight Measured 2022-07-09 14:22:00 206.00 pounds Height Measured 2022-07-09 14:22:00 65.00 inches Body Temperature 2022-07-09 14:22:00 97.60 degrees Heart Rate 2022-07-09 14:22:00 102.00 /min Respiratory Rate 2022-07-09 14:22:00 BP Systolic 2022-04-11 10:20:00 121 mm[Hg] BP Diastolic 2022-04-11 10:20:00 85 mm[Hg] Weight Measured 2022-04-11 10:20:00 196.00 pounds Height Measured 2022-04-11 10:20:00 65.00 inches Body Temperature 2022-04-11 10:20:00 97.60 degrees Heart Rate 2022-04-11 10:20:00 127.00 /min Respiratory Rate 2022-04-11 10:20:00 BP Systolic 2022-04-04 10:29:00 111 mm[Hg] BP Diastolic 2022-04-04 10:29:00 80 mm[Hg] Weight Measured 2022-04-04 10:29:00 201.20 pounds Height Measured 2022-04-04 10:29:00 65.00 inches Body Temperature 2022-04-04 10:29:00 97.00 degrees Heart Rate 2022-04-04 10:29:00 74.00 /min Respiratory Rate 2022-04-04 10:29:00 BP Systolic 2022-02-20 15:50:00 166 mm[Hg] BP Diastolic 2022-02-20 15:50:00 76 mm[Hg] Weight Measured 2022-02-20 15:50:00 205.20 pounds Height Measured 2022-02-20 15:50:00 65.00 inches Body Temperature 2022-02-20 15:50:00 97.80 degrees Heart Rate 2022-02-20 15:50:00 Respiratory Rate 2022-02-20 15:50:00 BP Systolic 2022-02-06 16:18:00 116 mm[Hg] BP Diastolic 2022-02-06 16:18:00 83 mm[Hg] Weight Measured 2022-02-06 16:18:00 209.60 pounds Height Measured 2022-02-06 16:18:00 65.00 inches Body Temperature 2022-02-06 16:18:00 98.00 degrees Heart Rate 2022-02-06 16:18:00 90.00 /min Respiratory Rate 2022-02-06 16:18:00 16.00 /min BP Systolic 2021-06-29 14:11:00 127 mm[Hg] BP Diastolic 2021-06-29 14:11:00 85 mm[Hg] Weight Measured 2021-06-29 14:11:00 214.40 pounds Height Measured 2021-06-29 14:11:00 65.00 inches Body Temperature 2021-06-29 14:11:00 97.40 degrees Heart Rate 2021-06-29 14:11:00 97.00 /min Respiratory Rate 2021-06-29 14:11:00 21.00 /min BP Systolic 2021-04-03 09:22:00 111 mm[Hg] BP Diastolic 2021-04-03 09:22:00 79 mm[Hg] Weight Measured 2021-04-03 09:22:00 213.00 pounds Height Measured 2021-04-03 09:22:00 65.00 inches Body Temperature 2021-04-03 09:22:00 98.10 degrees Heart Rate 2021-04-03 09:22:00 84.00 /min Respiratory Rate 2021-04-03 09:22:00 Plan of Care Planned Activity Planned Date Details Comments Source Goal Plan of Care Note [code = 31054-8] Goal Plan of Care Note [code = 14854-0] Goal Plan of Care Note [code = 73473-8] Goal Plan of Care Note [code = 42991-9] Goal Plan of Care Note [code = 88931-1] Goal Plan of Care Note [code = 83609-3] Goal Plan of Care Note [code = 87767-2] Goal Plan of Care Note [code = 42753-1] Goal Plan of Care Note [code = 20394-3] Goal Plan of Care Note [code = 79546-1] Goal Plan of Care Note [code = 26679-3] Goal Plan of Care Note [code = 30896-1] Goal Plan of Care Note [code = 74327-9] Goal Plan of Care Note [code = 87037-1] Goal Plan of Care Note [code = 85580-5] Encounters Start Date/Time End Date/Time Encounter Type Admission Type Attending [facility] Facility Care Department Encounter ID Source 2024-04-15 13:24:15 2024-04-15 13:24:15 Outpatient SFA SFA [id number] Abelardo Villa 2024-01-20 11:51:42 2024-01-20 11:51:42 Outpatient SFA SFA [id number] Abelardo Villa 2023-12-24 08:40:32 2023-12-24 08:40:32 Outpatient SFA SFA [id number] Abelardo Villa 2023-10-21 09:08:06 2023-10-21 09:08:06 Outpatient SFA SFA [id number] Abelardo Villa 2023-10-14 09:19:21 2023-10-14 09:19:21 Outpatient SFA SFA [id number] Abelardo Villa 2023-07-09 14:15:16 2023-07-09 14:15:16 Outpatient SFA SFA [id number] Abelardo Villa 2023-03-21 14:08:31 2023-03-21 14:08:31 Outpatient SFA SFA [id number] Abelardo Villa 2022-12-20 15:16:12 2022-12-20 15:16:12 Outpatient SFA SFA [id number] Abelardo Villa 2022-09-26 13:48:18 2022-09-26 13:48:18 Outpatient SFA SFA [id number] Abelardo Villa 2022-07-09 14:20:02 2022-07-09 14:20:02 Outpatient SFA SFA [id number] Abelardo Villa 2022-07-09 00:00:00 2022-07-09 00:00:00 Outpatient Visit [id number] Results Test Description Test Time Test Comments Results Result Co mments Source COMPREHENSIVE METABOLIC [id number] 05:52:45* Test Item Value Reference Range Interpretation Comme nts GLUCOSE (test code = 2217) 87 MG/DL 70-99 BUN (test code = 2208) 15 MG/DL 6-20 CREATININE (test code = 2214) 0.82 MG/DL 0.60-1.30 eGFR (2020 CKD-EPI) (test code = 21181) 101 ML/MIN/1.73 >60 CALC BUN/CREAT (test code = 223) 18 RATIO 6-28 SODIUM (test code = 223) 141 MEQ/L 133-146 POTASSIUM (test code = 2228) 3.9 MEQ/L 3.5-5.4 CHLORIDE (test code = 2215) 103 MEQ/L 95-107 CARBON DIOXIDE (test code = 2206) 24 MEQ/L 19-31 CALCIUM (test code = 220) 9.6 MG/DL 8.5-10.5 PROTEIN, TOTAL (test code = 2228) 7.6 G/DL 6.1-8.3 ALBUMIN (test code = 2200) 4.5 G/DL 3.5-5.2 CALC GLOBULIN (test code = 2240) 3.1 G/DL 1.9-3.7 CALC A/G RATIO (test code = 2233) 1.5 RATIO 1.0-2.6 BILIRUBIN, TOTAL (test code = 2206) 0.4 MG/DL See_Comment [Automated me ssage] The system which generated this result transmitted reference range: <=1.2. The reference range was not used to interpret this result as normal/abnormal. ALKALINE PHOSPHATASE (test code = 2203) 69 U/L 40-112 AST (test code = 2218) 32 U/L 9-40 ALT (test code = 2219) 42 U/L 5-40 H COMPREHENSIVE METABOLIC [id number] 00:00:00* Test Item Value Reference Range Interpretation Comme nts GLUCOSE (test code = 7) 87 MG/DL BUN (test code = 2207) 15 MG/DL CREATININE (test code = 2214) 0.82 MG/DL eGFR (2020 CKD-EPI) (test code = 61446) 101 ML/MIN/1.73 CALC BUN/CREAT (test code = 2234) 18 RATIO SODIUM (test code = 223) 141 MEQ/L POTASSIUM (test code = 2228) 3.9 MEQ/L CHLORIDE (test code = 2215) 103 MEQ/L CARBON DIOXIDE (test code = 2206) 24 MEQ/L CALCIUM (test code = 220) 9.6 MG/DL PROTEIN, TOTAL (test code = 222) 7.6 G/DL ALBUMIN (test code = 2201) 4.5 G/DL CALC GLOBULIN (test code = 2240) 3.1 G/DL CALC A/G RATIO (test code = 2234) 1.5 RATIO BILIRUBIN, TOTAL (test code = 2207) 0.4 MG/DL ALKALINE PHOSPHATASE (test code = 2204) 69 U/L AST (test code = 2218) 32 U/L ALT (test code = 2219) 42 U/L ACUTE HEPATITIS [id number] 00:00:00* Test Item Value Reference Range Interpretation Comme nts HEPATITIS A IgM (test code = 77441) NON-REACTIVE HEPATITIS B CORE IgM (test c ode = 4644) NON-REACTIVE HEPATITIS B SURF AG (test co de = 2739) NON-REACTIVE HEPATITIS C ANTIBODY (test c ode = 4675) NON-REACTIVE INTERPRETATION HEPATITIS A: (test code = 2552) (NOTE) INTERPRETATION HEPATITIS B: (test code = 07529) (NOTE) INTERPRETATION HEPATITIS C: (test code = 60818) (NOTE)
[2024-11-01] MEDS ORDERED: NA CHLORIDE 0.9% 1,000 ML ONE (20:00)
[2024-11-01] MEDS ORDERED: KETOROLAC 30 MG/ML INJ ONE (20:00)
[2024-11-01] MEDS ORDERED: DICYCLOMINE HCL 20 MG/2 ML AMP IM ONE (20:00)
[2024-11-01] MEDS ORDERED: FAMOTIDINE 20 MG/2 ML VIAL IV ONE (20:00)
[2024-11-01] MEDS ORDERED: ONDANSETRON 4 MG/2 ML VIAL ONE (20:00)
[2024-11-01 20:05] LABS: Absolute Lymphocytes (CBC) 0.7 K/uL (0.7-4.9); Absolute Monocytes 0.5 K/uL (0.1-1.3); Absolute Neutrophil 8.7 K/uL (1.8-8.0); Basophils % 0.3 % (0-1.3); Eosinophils % 0.3 % (0-4.4); Hematocrit 48.7 % (36.0-45.0); Hemoglobin 17.3 g/dL (12.0-15.0); MCH 32.2 pg (27.0-35.0); MCHC 35.5 g/dL (32.0-36.0); MCV 90.7 fL (80-100); MPV 7.1 fL (7.6-11.3); Monocytes % 4.8 % (3.3-12.3); Neutrophils % 87.6 % (41.7-73.7); Platelets 354 thou/uL (152-406); RBC Red Blood Cell Count 5.37 M/uL (3.86-4.86); Red Cell Distribution Width 12.7 % (12.1-15.2)
[2024-11-01 20:25] LABS: Specific Gravity 1.007 (1.005-1.030)
[2024-11-01 20:28] LABS: Albumin 3.8 g/dL (3.4-5.0); Albumin/Globulin Ratio 0.8 (1.1-1.8); Anion Gap 11.7 mEq/L (5.0-15.0); Bilirubin Total 0.4 mg/dL (0.2-1.0); Globulin 4.7 g/dL (2.3-3.5); Potassium 3.7 mEq/L (3.5-5.1); Protein, Total 8.5 g/dL (6.4-8.2)
[2024-11-01 20:35] LABS: Specific Gravity 1.007 (1.005-1.030); Sqamous Epithelial <5 /HPF (None Seen); Transitional Epithelial <5 /HPF (None Seen); Urine Bacteria <20 /HPF (<20); Urine Bilirubin NEGATIVE (Negative); Urine Blood 3+ (OVER) (Negative); Urine Clarity Extremely Turbid (Clear); Urine Color Light-Yellow (Yellow); Urine Culture Reflex Order NOT NEEDED; Urine Glucose NEGATIVE (Negative); Urine Ketones NEGATIVE (Negative); Urine Microscopic Reflex YN ORDER UMIC; Urine Mucus Slight /HPF (None Seen); Urine Nitrite NEGATIVE (Negative); Urine Protein TRACE (Negative); Urine RBC <5 /HPF (None Seen); Urine Urobilinogen Normal (Normal); Urine WBC <5 /HPF (<5); Urine pH 6.5 (5.0-7.0)
--- NOTE | 2024-11-01 21:03 | RAD REPORT ---
EXAMINATION: CT ABDOMEN AND PELVIS WITH CONTRAST CLINICAL INDICATION: Abdominal pain TECHNIQUE: CT abdomen and pelvis was performed, after the administration of 100 cc Isovue-300.. Sagit denise and coronal reconstructions were obtained. One or more of the following dose reduction techniques were used: Automated exposure control, adjustment of the mA and kV according to patient si ze, and iterative reconstruction. Unless otherwise specified, incidental findings do not require dedicated imaging follow-up. [id number]. Oral contrast was not given which limits evaluation of bowel and appendix. COMPARISON: .2021 FINDINGS: Liver, spleen, pancreas, adrenals and kidneys appear unremarkable Cholecystectomy. Normal appendix. Fluid within nondilated small bowel and colon No evidence of diverticulitis. Small hiatal hernia : IMPRESSION: Fluid within nondilated small bowel and colon may indicate an enteritis
[2024-11-01 21:55] LABS: Band Neutrophils 31 % (0-1); Blood Morphology Comment NOT SEEN (NOT SEEN); Differential Total Cells Count 100; Lymphocytes 5 % (15-42); Monocytes 2 % (0-10); Platelet Estimate ADEQ; Reactive Lymphocytes 8 %; Segmented Neutrophils 54 % (40-80)
[2024-11-01 22:08] LABS: Influenza A Ag Negative; Influenza B Ag Negative; SARS-CoV-2 Antigen Rapid Res Negative (Negative)
[2024-11-01] MEDS ORDERED: CEFTRIAXONE 1000 MG/VIAL ONE (22:56)
[2024-11-01] MEDS ORDERED: METRONIDAZOLE 500mg IVPB 500 MG/100 ML BAG IV ONE (22:57)
--- NOTE | 2024-11-01 23:10 | EDPHYS ---
Physician Documentation [facility] Name: Yumi Jones Age: 29 yrs Sex: Female : 1995 Arrival Date: 11/01/2024 Time: 18:00 Bed 13 Private MD: ED Physician Jagdeep Grant HPI: 11/01 18:54 This 29 yrs old Female presents to ER via Ambulatory with complaints of Abdominal sb4 Cramping, Nausea/Vomiting/Diarrhea. 18:55 abdominal cramping, nausea, vomiting, diarrhea, left low back pain x 1 day. states her sb4 daughter was recently sick with a stomach bug. additionally endorses intermittent fever. is able to hold down fluids. took pepto and immodium without any improvement in diarrhea. Historical: - Allergies: 18:39 No Known Allergies; iw - Home Meds: 18:39 None [Active]; iw - PMHx: 18:39 None; iw - PSHx: 18:39 COSMETIC TUMMUY TUCK; liposuction; iw 18:45 Cholecystectomy; iw - Immunization history:: Adult Immunizations not up to date. - Infectious Disease History:: Denies. - Social history:: Smoking status: Patient denies any tobacco usage or history of. ROS: 18:55 Constitutional: Positive for fever, sb4 18:55 Abdomen/GI: Positive for abdominal pain, nausea, vomiting, and diarrhea, abdominal cramps, 18:55 Back: Positive for flank pain, on the left, 18:55 All other systems are negative, Exam: 18:56 Constitutional: This is a well developed, well nourished patient who is awake, alert, sb4 and in no acute distress. Head/Face: Normocephalic, atraumatic. Eyes: Extra-ocular motions intact. Periorbital areas with no swelling, redness, or edema. ENT: Mucous membranes moist. Respiratory: No increased work of breathing, no retractions or nasal flaring. Abdomen/GI: Soft, non-tender, no distension. Skin: Warm, dry with normal turgor. Normal color with no rashes, no lesions, and no evidence of cellulitis. 18:56 Cardiovascular: Rate: tachycardic, Rhythm: regular, Vital Signs: 18:38 BP 124 / 89; Pulse 119; Resp 19; Temp 98.5; Pulse Ox 98% on R/A; Weight 92.99 kg; iw Height 5 ft. 5 in. ; Pain 7/10; 21:07 BP 112 / 79; Pulse 92; Resp 20; Pulse Ox 100% on R/A; kj2 21:46 BP 106 / 76; Pulse 84; Resp 18; Pulse Ox 100% on R/A; kj2 22:45 BP 115 / 79; Pulse 90; Resp 18; Temp 98; Pulse Ox 100% on R/A; kj2 18:38 Body Mass Index 34.11 (92.99 kg, 165.1 cm) iw 18:38 Pain Scale: Adult iw MDM: 18:07 Medical Screening Exam initiated sb4 23:01 Data reviewed: vital signs, nurses notes, lab test result(s), radiologic studies, I sb4 have discussed the patient's presentation/case with the attending Emergency Department Physician; and as a result, I will discharge patient. Counseling: I had a detailed discussion with the patient and/or guardian regarding the historical points, exam findings, and any diagnostic results supporting the discharge/admit diagnosis, lab results, radiology results, the need for outpatient follow up, for definitive care, to return to the emergency department if symptoms worsen or persist or if there are any questions or concerns that arise at home. 11/01 18:47 Order name: CBC with Diff; Complete Time: 21:57 4 11/01 18:47 Order name: CMP; Complete Time: 20:29 sb4 11/01 18:47 Order name: Lipase; Complete Time: 20:29 4 11/01 18:47 Order name: Test, Urine; Complete Time: 20:35 sb4 11/01 18:47 Order name: Urinalysis w/ reflexes; Complete Time: 20:36 sb4 11/01 18:47 Order name: COVID-19 Ag + Flu A+B Ag; Complete Time: 22:12 sb4 11/01 20:11 Order name: Manual Differential; Complete Time: 21:57 EDMS 11/01 22:09 Order name: Blood Culture Adult (2) sb4 11/01 22:09 Order name: Lactate w/ 2H reflex if indic.; Complete Time: 23:49 sb4 11/01 22:09 Order name: PT-INR; Complete Time: 23:33 sb4 11/01 22:09 Order name: Ptt, Activated; Complete Time: 23:33 sb4 11/01 18:47 Order name: CT Abd/Pelvis - IV Contrast Only; Complete Time: 21:03 sb4 11/01 18:47 Order name: IV Saline Lock; Complete Time: 19:53 sb4 11/01 18:47 Order name: Labs collected and sent; Complete Time: 19:53 sb4 Administered Medications: 20:20 Drug: Dicyclomine IM 20 mg IM once Route: IM; Site: right deltoid; kj2 21:41 Follow up: Response: No adverse reaction kj2 20:21 Drug: Famotidine IVP 20 mg IVP once; dilute with 10 mL 0.9% NaCl; give over 2 minutes kj2 Route: IVP; Site: left antecubital; 21:42 Follow up: Response: No adverse reaction kj2 20:22 Drug: TORadol - Ketorolac IVP 15 mg IVP once Route: IVP; Site: left antecubital; kj2 21:42 Follow up: Response: No adverse reaction kj2 20:22 Drug: Ondansetron IVP 4 mg IVP once; over 2 minutes Route: IVP; Site: left antecubital; kj2 21:42 Follow up: Response: No adverse reaction kj2 20:22 Drug: NS 0.9% IV 1000 ml IV at 1 bolus Per protocol; to be given as a bolus over 60 kj2 minutes Route: IV; Rate: 1 bolus; Site: left antecubital; 21:42 Follow up: IV Status: Completed infusion; IV Intake: 1000ml kj2 23:00 Drug: Rocephin IV 1 grams IV at calculated rate once; Given slow IV push per pharmacy kj2 instructions Route: IV; Rate: calculated rate; Site: left antecubital; 23:19 Follow up: IV Status: Completed infusion; IV Intake: 100ml kj2 23:20 Follow up: IV Status: Completed infusion; IV Intake: 10ml kj2 23:06 Drug: metroNIDAZOLE IVPB 500 mg 100 ml IVPB at 200 ml/hr once over 30 mins Volume: 100 kj2 ml; Route: IVPB; Rate: 200 ml/hr; Infused Over: 30 mins; Site: left antecubital; 23:38 Follow up: IV Status: Completed infusion; IV Intake: 100ml kj2 Disposition: 23:11 Chart complete. sb4 11/02 12:34 Co-signature as Attending Physician, Jagdeep Grant MD I agree with the assessment and sánchez plan of care. Disposition Summary: 11/01/24 23:10 Discharge Ordered Notes: Location: Home sb4 Problem: new sb4 Symptoms: have improved sb4 Condition: Stable sb4 Diagnosis - Infectious gastroenteritis and colitis, unspecified sb4 Followup: sb4 - With: Private Physician - When: 1 week - Reason: Recheck today's complaints, Re-evaluation by your physician Discharge Instructions: - Discharge Summary Sheet sb4 - Food Choices to Help Relieve Diarrhea, Adult sb4 - Colitis sb4 Forms: - Antibiotic Education sb4 - Patient Portal Instructions sb4 - Leadership Thank You Letter sb4 Prescriptions: - Flagyl 500 mg Oral Tablet - take 1 tablet ORAL route every 12 hours for 7 days; 14 tablet; Refills: 0, sb4 Product Selection Permitted - Cipro 500 mg Oral Tablet - take 1 tablet ORAL route every 12 hours for 7 days; 14 tablet; Refills: 0, sb4 Product Selection Permitted Signatures: Dispatcher [employer] Jagdeep Jones MD MD cha Williams, Irene, RN Marilee Fairchild PA-C PASadie sb4 Rosa Maria Bean RN RN kj2 Corrections: (The following items were deleted from the chart) 11/01 18:48 18:47 CBC+H.LAB.BRZ ordered. EDMS EDMS 18:48 18:47 COMPREHENSIVE METABOLIC PANEL+C.LAB.BRZ ordered. EDMS EDMS 18:48 18:47 LIPASE+C.LAB.BRZ ordered. EDMS EDMS 18:48 18:47 Test, Urine+UC.LAB.BRZ ordered. EDMS EDMS 18:48 18:47 Urinalysis+U.LAB.BRZ ordered. EDMS EDMS 18:48 18:47 COVID-19 Ag + Flu A+B Ag+I.LAB.BRZ ordered. EDMS EDMS 22:10 22:10 BLOOD CULTURE*+BA.LAB.BRZ ordered. EDMS EDMS 22:10 22:10 LACTATE+C.LAB.BRZ ordered. EDMS EDMS 22:10 22:10 PROTIME (+INR)+COAG.LAB.BRZ ordered. EDMS EDMS 22:10 22:10 PTT, ACTIVATED+COAG.LAB.BRZ ordered. EDMS EDMS
--- NOTE | 2024-11-01 23:10 | ER ---
Nurse's Notes [facility] Name: Yumi Jones Age: 29 yrs Sex: Female : 1995 Arrival Date: 11/01/2024 Time: 18:00 Bed 13 Private MD: Diagnosis: Infectious gastroenteritis and colitis, unspecified Presentation: 11/01 18:38 Chief complaint: Patient states: lower back pain and diarrhea and cramps , started iw yesterday , and i had a fever this morning , has had her period for 3 weeks. Coronavirus screen: Client presents with at least one sign or symptom that may indicate coronavirus-19. Ebola Screen: No symptoms or risks identified at this time. Initial Sepsis Screen: Does the patient meet any 2 criteria? No. Patient's initial sepsis screen is negative. Does the patient have a suspected source of infection? No. Patient's initial sepsis screen is negative. Risk Assessment: Do you want to hurt yourself or someone else? Patient reports no desire to harm self or others. Onset of symptoms was October 31, 2024. 18:38 Method Of Arrival: Ambulatory iw 18:38 Acuity: YESENIA 3 iw Historical: - Allergies: 18:39 No Known Allergies; iw - Home Meds: 18:39 None [Active]; iw - PMHx: 18:39 None; iw - PSHx: 18:39 COSMETIC TUMMUY TUCK; liposuction; iw 18:45 Cholecystectomy; iw - Immunization history:: Adult Immunizations not up to date. - Infectious Disease History:: Denies. - Social history:: Smoking status: Patient denies any tobacco usage or history of. Screenin:45 [facility] ED Fall Risk Assessment (Adult) History of falling in the last 3 months, kj2 including since admission No falls in past 3 months (0 pts) Confusion or Disorientation No (0 pts) Intoxicated or Sedated No (0 pts) Impaired Gait No (0 pts) Mobility Assist Device Used No (0 pt) Altered Elimination No (0 pt) Score/Fall Risk Level 0 - 2 = Low Risk Maintained a safe environment, Hourly rounding (assess needs \T\ fall precautionary measures) done. Abuse screen: Denies threats or abuse. Denies injuries from another. Nutritional screening: No deficits noted. Tuberculosis screening: No symptoms or risk factors identified. Assessment: 19:45 General: Appears in no apparent distress. Behavior is calm, cooperative. Pain: kj2 Complains of pain in abdomen Pain currently is 8 out of 10 on a pain scale. Neuro: Level of Consciousness is awake, alert, Oriented to person, place, time, situation. Cardiovascular: Patient's skin is warm and dry. Respiratory: Airway is patent Respiratory effort is even, unlabored. GI: Reports lower abdominal pain, cramping, nausea. : No signs and/or symptoms were reported regarding the genitourinary system. 20:43 Reassessment: Patient appears in no apparent distress at this time. Patient and/or kj2 family updated on plan of care and expected duration. Pain level reassessed. Patient is alert, oriented x 3, equal unlabored respirations, skin warm/dry/pink. 21:43 Reassessment: Patient appears in no apparent distress at this time. Patient and/or kj2 family updated on plan of care and expected duration. Pain level reassessed. Patient is alert, oriented x 3, equal unlabored respirations, skin warm/dry/pink. 22:45 Reassessment: Patient appears in no apparent distress at this time. Patient and/or kj2 family updated on plan of care and expected duration. Pain level reassessed. Patient is alert, oriented x 3, equal unlabored respirations, skin warm/dry/pink. Vital Signs: 18:38 BP 124 / 89; Pulse 119; Resp 19; Temp 98.5; Pulse Ox 98% on R/A; Weight 92.99 kg; iw Height 5 ft. 5 in. ; Pain 7/10; 21:07 BP 112 / 79; Pulse 92; Resp 20; Pulse Ox 100% on R/A; kj2 21:46 BP 106 / 76; Pulse 84; Resp 18; Pulse Ox 100% on R/A; kj2 22:45 BP 115 / 79; Pulse 90; Resp 18; Temp 98; Pulse Ox 100% on R/A; kj2 18:38 Body Mass Index 34.11 (92.99 kg, 165.1 cm) iw 18:38 Pain Scale: Adult iw ED Course: 18:03 Patient arrived in ED. im 18:05 Marilee Casillas PA-C is PHCP. sb4 18:05 Jagdeep Grant MD is Attending Physician. sb4 18:39 Triage completed. iw 18:40 Arm band placed on. iw 19:33 Rosa Maria Bean, RN is Primary Nurse. kj2 19:45 Patient has correct armband on for positive identification. Bed in low position. Call kj2 light in reach. Side rails up X 1. Provided Education on: call light. 19:50 Inserted saline lock: 20 gauge in left antecubital area, using aseptic technique. Blood kj2 collected. Flushed with 10 mL NS. 20:51 CT Abd/Pelvis - IV Contrast Only In Process Unspecified. EDMS 20:55 No provider procedures requiring assistance completed. kj2 23:39 IV discontinued, intact, bleeding controlled, No redness/swelling at site. Pressure kj2 dressing applied. Administered Medications: 20:20 Drug: Dicyclomine IM 20 mg IM once Route: IM; Site: right deltoid; kj2 21:41 Follow up: Response: No adverse reaction kj2 20:21 Drug: Famotidine IVP 20 mg IVP once; dilute with 10 mL 0.9% NaCl; give over 2 minutes kj2 Route: IVP; Site: left antecubital; 21:42 Follow up: Response: No adverse reaction kj2 20:22 Drug: TORadol - Ketorolac IVP 15 mg IVP once Route: IVP; Site: left antecubital; kj2 21:42 Follow up: Response: No adverse reaction kj2 20:22 Drug: Ondansetron IVP 4 mg IVP once; over 2 minutes Route: IVP; Site: left antecubital; kj2 21:42 Follow up: Response: No adverse reaction kj2 20:22 Drug: NS 0.9% IV 1000 ml IV at 1 bolus Per protocol; to be given as a bolus over 60 kj2 minutes Route: IV; Rate: 1 bolus; Site: left antecubital; 21:42 Follow up: IV Status: Completed infusion; IV Intake: 1000ml kj2 23:00 Drug: Rocephin IV 1 grams IV at calculated rate once; Given slow IV push per pharmacy kj2 instructions Route: IV; Rate: calculated rate; Site: left antecubital; 23:19 Follow up: IV Status: Completed infusion; IV Intake: 100ml kj2 23:20 Follow up: IV Status: Completed infusion; IV Intake: 10ml kj2 23:06 Drug: metroNIDAZOLE IVPB 500 mg 100 ml IVPB at 200 ml/hr once over 30 mins Volume: 100 kj2 ml; Route: IVPB; Rate: 200 ml/hr; Infused Over: 30 mins; Site: left antecubital; 23:38 Follow up: IV Status: Completed infusion; IV Intake: 100ml kj2 Medication: 21:04 VIS not applicable for this client. kj2 Intake: 21:42 IV: 1000ml; Total: 1000ml. kj2 23:19 IV: 100ml; Total: 1100ml. kj2 23:20 IV: 10ml; Total: 1110ml. kj2 23:38 IV: 100ml; Total: 1210ml. kj2 Outcome: 23:10 Discharge ordered by . sb4 23:39 Discharged to home ambulatory, kj2 23:39 Condition: improved 23:39 Condition: stable 23:39 Discharge instructions given to patient, Instructed on discharge instructions, follow up and referral plans. Demonstrated understanding of instructions, follow-up care, medications, Prescriptions given X 2, 23:40 Patient left the ED. kj2 Signatures: Dispatcher [employer] EDMS Marjorie Castillo, RN RN iw Marilee Casillas, PA-C PA-C john4 Alicia Sutton Krystal, RN RN kj2 Corrections: (The following items were deleted from the chart) 18:40 18:38 Chief complaint: Patient states: lower back pain and diarrhea and cramps , iw started yesterday , and i had a fever this morning iw 18:40 18:38 BP 124 / 89; Pulse 119bpm; Resp 19bpm; Pulse Ox 98% RA; Temp 98.5F; iw iw
[2024-11-01 23:30] LABS: PT Prothrombin Time 12.1 SECONDS (10.0-13.0); PTT, Activated Partial Thromb 32.1 SECONDS (24.3-36.9); Protime INR 1.06
[2024-11-01 23:55] VITALS: O2SAT 100
[2024-11-01 23:59] VITALS: BP 115/79; TEMP 98
== END 2024-11-01 23:40 | disposition home or self-care (01) ==
LOC: ER 18:00
DX: A09 Infectious gastroenteritis and colitis, unspecified (principal); Z11.52 Encounter for screening for COVID-19
CPT/HCPCS: 36415; 74177; 80053; 81001; 81025; 83605; 83690; 85025; 85610; 85730; 87040; 87428; 96361; 96365; 96372; 96375; 99284; J0500; J0696; J2405; J7030; Q9967